=== PATIENT | female | born 1960 ===

== ENCOUNTER 2018-03-09 14:00 | Emergency (ER) | payer BC ==
[2018-03-09 14:15] VITALS: BP 132/67
--- NOTE | 2018-03-09 15:20 | UC ---
Upper Extremity HPI - HPI Summary HPI Summary: The patient is a 58 y/o F presenting to [facility] with a chief complaint of pain, swelling, and redness in the upper left arm starting three days ago. On 03/06/18 , the pt had traveled on a plane, and she had noticed that the pain started afterwards that night. The aching and throbbing pain, which does not radiate, is rated 5/10 in severity. She denies SOB. There are no aggravating or alleviating factors. She denies known injury. - History of Current Complaint Chief Complaint: UCUpperExtremity Stated Complaint: L SHOULDER COMPLAINT Time Seen by Provider: 03/09/18 14:52 Hx Obtained From: Patient Onset/Duration: Sudden Onset, Lasting Days, Still Present Severity Initially: Moderate Severity Currently: Moderate Pain Intensity: 5 Pain Scale Used: 0-10 Numeric Location Of Pain: Is Discrete @ - upper left arm Character: Aching, Throbbing Aggravating Factor(s): Nothing Alleviating Factor(s): Nothing Associated Signs And Symptoms: Positive: Negative - SOB, Swelling, Redness Body - Head: 1 - pain, swelling, and redness in upper left arm - Allergies/Home Medications Allergies/Adverse Reactions: Allergies Allergy/AdvReac Type Severity Reaction Status Date / Time No Known Allergies Allergy Verified 03/09/18 16:33 Home Medications: Home Medications Estradiol PATCH 0.0375/DAY* 1 patch INTRADERM WEEKLY 03/09/18 [History Confirmed 03/09/18] PMH/Surg Hx/FS Hx/Imm Hx Endocrine History: Other Other Endocrine History: NEGATIVE: diabetes Cardiovascular History: Other Other Cardiovascular History: NEGATIVE: HTN - Surgical History Surgical History: None - Family History Known Family History: Negative: Cardiac Disease - Social History Alcohol Use: Rare Substance Use Type: None Smoking Status (MU): Never Smoked Tobacco Review of Systems Skin: Other - swelling and erythema in the upper left arm Respiratory: Other - NEGATIVE: SOB All Other Systems Reviewed And Are Negative: Yes Physical Exam - Summary Physical Exam Summary: VITAL SIGNS: Reviewed. GENERAL: Patient is a well-developed and nourished female who is lying comfortable in the stretcher. Patient is not in any acute respiratory distress. HEAD AND FACE: Normocephalic EYES: PERRLA, EOMI x 2. EARS: Hearing grossly intact. MOUTH: Oropharynx within normal limits. NECK: Supple, trachea is midline, no adenopathy, no JVD, no carotid bruit. CHEST: Symmetric, no tenderness at palpation LUNGS: Clear to auscultation bilaterally. No wheezing or crackles. CVS: Regular rate and rhythm, S1 and S2 present, no murmurs or gallops appreciated. ABDOMEN: Soft, non-tender. Bowel sounds are normal. No abdominal abnormal pulsations. EXTREMITIES: Full ROM in all major joints, no edema, no cyanosis or clubbing. Erythema and swelling in the upper left arm NEURO: Alert and oriented x 3. No acute neurological deficits. Speech is normal and follows commands. SKIN: Dry and warm Triage Information Reviewed: Yes Vital Signs: Initial Vital Signs Temp 97.9 F 03/09/18 14:10 Pulse 90 03/09/18 14:10 Resp 20 03/09/18 14:10 BP 132/67 03/09/18 14:10 Pulse Ox 100 03/09/18 14:10 Vital Signs Reviewed: Yes Upper Extremity Course/Dx - Course Course Of Treatment: This patient is a 58-year-old female who presents to the urgent care with chief complaint of having left upper extremity swelling and redness especially in the left upper arm. Patient reports that she had a flight on Monday (three days ago) and shortly after she developed the swelling and redness. There are no signs of entrance for infection, and she has good pulses and good capillary refill. However, because of the history of presentations, we need to rule out a DVT. In the urgent care there is not an available ultrasound, therefore the patient will be admitted to the emergency department for further workup and management. The patient denies any shortness of breath and she is hemodynamically stable, and alert and oriented 3. She agrees with this plan. She declined ambulance transfer, she will drive herself to the emergency department. - Differential Dx/Diagnosis Provider Diagnoses: Left upper extremity swelling Discharge - Sign-Out/Discharge Documenting (check all that apply): Patient Departure - Patient will be discharged with instruction to go to [facility] immediately. All imaging exams completed and their final reports reviewed: No Studies - Discharge Plan Condition: Improved Disposition: HOME-RECOMMEND TO ED Patient Education Materials: Arm Pain (ED) Referrals: Maurice Kc MD [Primary Care Provider] - Additional Instructions: Patient will be discharged to the emergency department for further workup and management. Patient declined ambulance transport. - Billing Disposition and Condition Condition: IMPROVED Disposition: Home-Recommend to ED - Attestation Statements Document Initiated by Scribe: Yes Documenting Scribe: Anahi Hernandez Provider For Whom Eliazar is Documenting (Include Credential): Dr. Kash Cox MD Scribe Attestation: Anahi Jean Baptiste scribed for Dr. Kash Cox MD on 03/09/18 at 1738. Scribe Documentation Reviewed: Yes Provider Attestation: The documentation as recorded by the Anahi cannon accurately reflects the service I personally performed and the decisions made by me, Dr. Kash Cox MD
== END 2018-03-09 15:31 | disposition home health service (06) ==
LOC: UCEAST 14:00
DX: M79.622 Pain in left upper arm (principal)
CPT/HCPCS: 99202; G0463